=== PATIENT | female | born 1975 | race Caucasian/White ===

== ENCOUNTER → 2016-09-29 | Outpatient (REF) | payer OTHER ==
[~2016-09-29] MED LIST: ATIV0.5T3 PO; NO HOME MEDS; TRAZ50TA2 PO; ZOLO100T PO
[2016-09-29 16:40] LABS: MEAN CORPUSCULAR HEMOGLOBIN 27.6 pg (27.0-33.0); MEAN CORPUSCULAR HGB CONC 31.5 g/dl (32.0-36.5); MEAN CORPUSCULAR VOLUME 87.6 fl (80.0-96.0); RED CELL DISTRIBUTION WIDTH 13.7 % (11.5-14.5); WHITE BLOOD COUNT 7.4 K/mm3 (4.0-10.0)
[2016-09-29 17:18] LABS: ALBUMIN 3.7 GM/DL (3.2-5.2); ALKALINE PHOSPHATASE 83 U/L (45-117); ALT/SGPT 26 U/L (12-78); ANION GAP 7 MEQ/L (8-16); AST/SGOT 15 U/L (15-37); BILIRUBIN,TOTAL 0.3 MG/DL (0.2-1.0); BLOOD UREA NITROGEN 11 MG/DL (7-18); CALCIUM LEVEL 8.8 MG/DL (8.5-10.1); CARBON DIOXIDE LEVEL 27 MEQ/L (21-32); CHLORIDE LEVEL 107 MEQ/L (98-107); CREATININE FOR GFR 0.74 MG/DL (0.55-1.02); FREE T4 1.13 NG/DL (0.76-1.46); GLOMERULAR FILTRATION RATE > 60.0 (>60); GLUCOSE, FASTING 86 MG/DL (70-105); POTASSIUM SERUM 4.4 MEQ/L (3.5-5.1); SODIUM LEVEL 141 MEQ/L (136-145); TOTAL PROTEIN 7.4 GM/DL (6.4-8.2)
== END ==
LOC: M SFHCCLAY 09:56
PROVIDERS: ATTEND Family Medicine
DX: F32.1 Major depressive disorder, single episode, moderate (principal)

== ENCOUNTER → 2017-05-27 | Outpatient (REF) | payer OTHER ==
[2017-05-27 20:22] LABS: TOTAL PROTEIN 7.7 GM/DL (6.4-8.2)
[2017-05-31 13:44] LABS: ALBUMIN 4.09 GM/DL (3.29-5.55); ALBUMIN % 53.1 % (55.8-66.1); GAMMA GLOBULIN % 17.2 % (11.1-18.8)
== END ==
LOC: M SFHCCLAY 11:20
PROVIDERS: ATTEND Family Medicine
DX: R77.9 Abnormality of plasma protein, unspecified (principal)

== ENCOUNTER → 2017-07-25 | Outpatient (REF) | payer OTHER ==
[2017-07-27 10:49] LABS: HEPATITIS B SURFACE ANTIBODY NEGATIVE (POSITIVE)
== END ==
LOC: M SFHCCLAY 09:02
DX: Z02.1 Encounter for pre-employment examination (principal)

== ENCOUNTER → 2018-01-04 | Outpatient (CLI) | payer OTHER | LOC: M OUTALCOH 14:10 | DX: F11.20 Opioid dependence, uncomplicated (principal) ==

== ENCOUNTER 2018-01-10 13:53 | Outpatient (RCR) | payer OTHER | END 2018-02-07 | LOC: M OUTALCOH 01-27 09:00 | DX: F11.20 Opioid dependence, uncomplicated (principal); F10.20 Alcohol dependence, uncomplicated ==

== ENCOUNTER 2018-03-23 15:42 | Outpatient (RCR) | payer OTHER | END 2018-04-09 | LOC: M OUTALCOH 04-07 09:00 | DX: F11.20 Opioid dependence, uncomplicated (principal); F10.20 Alcohol dependence, uncomplicated ==

== ENCOUNTER 2018-04-21 15:39 | Outpatient (RCR) | payer OTHER | END 2018-05-10 | LOC: M OUTALCOH 04-27 09:00 | DX: F11.20 Opioid dependence, uncomplicated (principal); F10.20 Alcohol dependence, uncomplicated ==

== ENCOUNTER 2018-05-11 08:53 | Outpatient (RCR) | payer OTHER | END 2018-06-09 | LOC: M OUTALCOH 08:53 | DX: F11.20 Opioid dependence, uncomplicated (principal); F10.20 Alcohol dependence, uncomplicated ==

== ENCOUNTER 2018-07-06 10:36 | Outpatient (RCR) | payer OTHER | END 2018-07-10 | LOC: M OUTALCOH 10:36 | PROVIDERS: ATTEND Psychiatry & Neurology Psychiatry | DX: F10.20 Alcohol dependence, uncomplicated (principal); F11.20 Opioid dependence, uncomplicated ==

== ENCOUNTER 2018-08-09 09:30 | Outpatient (RCR) | payer OTHER | END 2018-08-10 | LOC: M OUTALCOH 09:30 | PROVIDERS: ATTEND Psychiatry & Neurology Psychiatry | DX: F11.20 Opioid dependence, uncomplicated (principal); F10.20 Alcohol dependence, uncomplicated ==

== ENCOUNTER 2018-08-31 14:30 | Outpatient (RCR) | payer OTHER | END 2018-09-07 | LOC: M OUTALCOH 14:30 | PROVIDERS: ATTEND Psychiatry & Neurology Psychiatry | DX: F11.20 Opioid dependence, uncomplicated (principal); F10.20 Alcohol dependence, uncomplicated ==

== ENCOUNTER 2018-10-11 05:36 | Day surgery (SDC) | payer OTHER ==
[~2018-10-11] VITALS: Ht 162.6 cm; Wt 110.6 kg
[~2018-10-11 05:36] MED LIST changes: +CITA40TA6 PO; +PRAZ1CAP PO
[2018-10-11] MEDS ORDERED: LR 1,000 ML IV ONE (06:00)
[2018-10-11 06:17] LABS: URINE PREG TEST NEGATIVE (NEGATIVE)
[2018-10-11] MEDS ORDERED: fentaNYL 100 MCG/2 ML INJECTION (J3010) As Ordered ONE (06:34)
[2018-10-11] MEDS ORDERED: MIDAZOLAM INJ 2 MG/2 ML VIAL (J2250) As Ordered ONE (06:34)
[2018-10-11] MEDS ORDERED: BUPIVACAINE HCL 0.25% 30 ML VIAL As Ordered ONE (06:34)
[2018-10-11] MEDS ORDERED: LIDOCAINE 2% INJ 100 MG/5 ML SDV (FOR ANES.) As Ordered ONE (06:55)
[2018-10-11] MEDS ORDERED: METOCLOPRAMIDE INJ 10MG/2ML VIAL (J2765) As Ordered ONE (06:55)
[2018-10-11] MEDS ORDERED: dexameTHASONE 4 MG/ML 1ML VIAL (J1100) As Ordered ONE (06:55)
[2018-10-11] MEDS ORDERED: PROPOFOL 200 MG/20 ML VIAL As Ordered ONE ×2 (06:55→08:11)
[2018-10-11] MEDS ORDERED: KETAMINE HCL 200 MG/20 ML VIAL As Ordered ONE (08:10)
[2018-10-11] MEDS ORDERED: SUCCINYLCHOLINE 100 MG/5 ML SYRINGE (J0330) As Ordered ONE (08:11)
[2018-10-11] MEDS ORDERED: fentaNYL 250 MCG/5 ML INJECTION (J3010) As Ordered ONE (08:12)
[2018-10-11] MEDS ORDERED: MIDAZOLAM INJ 2 MG/2 ML VIAL (J2250) IV ONE (09:45)
[2018-10-11] MEDS ORDERED: fentaNYL 100 MCG/2 ML INJECTION (J3010) IV ONE (10:00)
[2018-10-11] MEDS ORDERED: SUGAMMADEX SODIUM 500 MG/5 ML VIAL (BRIDION) As Ordered ONE (10:29)
[2018-10-11] MEDS ORDERED: HYDROMORPHONE HCL 0.5 MG/ 0.5 ML SYRINGE (J1170 PER 1) IV PRN (12:15)
[2018-10-11] MEDS ORDERED: fentaNYL 100 MCG/2 ML INJECTION (J3010) IV PRN (12:15)
[2018-10-11] MEDS ORDERED: traMADol 50 MG TAB PO PRN (12:15)
[2018-10-11] MEDS ORDERED: PROMETHAZINE INJ 25 MG/ML VIAL (J2550) IV PRN (12:15)
[2018-10-11] MEDS ORDERED: ONDANSETRON 4MG/2ML VIAL (J2405) IV PRN (12:15)
[2018-10-11] MEDS ORDERED: LR 1,000 ML IV SCH ×2 (12:15)
[2018-10-11] MEDS ORDERED: METOCLOPRAMIDE INJ 10MG/2ML VIAL (J2765) IV PRN (12:15)
[2018-10-11 13:50] VITALS: BP 137/97
--- NOTE | 2018-10-11 14:57 | REP ---
Left ankle: Eight views. History: Osteochondritis left ankle. Findings: A sequence of eight last image hold fluoroscopically obtained spot radiographs of the ankle document medial malleolar osteotomy and screw fixation. Electronically Signed by Leandro Nichols MD 10/11/2018 02:49 P
--- NOTE | 2018-10-19 09:35 | RO ---
DATE OF PROCEDURE: 10/11/2018 PREOPERATIVE DIAGNOSIS: Left talus osteochrondral lesion. POSTOPERATIVE DIAGNOSIS: Left talus osteochrondral lesion. PROCEDURES: 1. Left talus osteochrondral autograft transfer from the femur. 2. Medial malleolar osteotomy. SURGEON: Elva Montes MD ASSISTANTS: Bony Newton MD, and JHONATAN Chandra. ANESTHESIA: General endotracheal with popliteal and saphenous nerve blocks. ESTIMATED BLOOD LOSS: 75 mL. COMPLICATIONS: None. IMPLANTS: 4.0 cannulated screws times three. CONDITION: Stable to recovery. INDICATIONS: Pau Raman is a 42-year-old female with a large osteochrondral lesion in the medial aspect of the left talus. Patient has failed conservative measures and presents for elective surgery. Risks and benefits were explained in depth to the patient and included, but are not limited to, infection, damage to nerves and blood vessels, continued pain and stiffness, need for additional procedures. Informed consent was contained in the office. DESCRIPTION OF PROCEDURE: Patient was met in the preoperative holding area. Her left lower extremity was marked as the correct operative site. She was taken to the postanesthesia care unit (PACU), where she underwent nerve blocks by the anesthesia team. She was then taken to the operating room, where she was placed in the supine position on the operating room table. She underwent general anesthesia without any difficulty. A Cerrato was placed. This was removed at the end of the case. A bump was placed under the patient's operative extremity. A well-padded tourniquet was applied as well. Left lower extremity was prepped and draped in a normal sterile fashion after a chlorhexidine scrub had been performed. Antibiotics were given within 60 minutes prior to incision. An official time-out was held where the correct patient, operative site, and operative procedure were all verified. At this point, an incision was marked out over the medial malleolus about midway between the anterior and posterior aspects. The leg was exsanguinated, and tourniquet was inflated to 250 mmHg. Incision was made, and the medial malleolus was exposed. The medial aspect of the tibiotalar joint was identified. A guidewire was placed in location of the Chevron-type osteotomy for the medial malleolus. When I was satisfied with this on fluoroscopic films, a Chevron-type osteotomy was made using a #40 sagittal saw blade and micro sagittal saw. An osteotome was used to finish the cut through the cartilage. Following this, a Weinraub-type retractor was used to distract the osteotomy and expose the medial osteochrondral lesion in the talus. I had adequate exposure. The lesion was debrided with a rongeur and curettes back to a stable rim. It measured approximately 10 mm in diameter. Irrigation was performed of the joint. Once debridement had been performed to an adequate rim, attention was then turned to the knee. At this point, an incision was made over the lateral aspect of the knee by Dr. Newton. He did perform this part of the procedure. The retinaculum was incised, and the lateral aspect of the trochlea was identified. Using the [employer] OATS transfer system, a 10 mm plug was taken from the lateral aspect of the femur. The femur was then irrigated, and the retinaculum was closed using #0 Vicryl with the knee in 30 degrees of flexion. Skin there was closed with #3-0 Vicryl and rachel. After we had the autograft plug from the femur, it was shaped in a bullet-type manner. This was then transferred into the talus. The talus had previously been prepared with a 10 mm reamer. The plug fit nicely. There were no elevated areas. When we were happy with the placement of the plug, copious irrigation was performed. The medial malleolar osteotomy site was secured with two 4.0 mm screws and a third 4.0 mm screw transverse across the osteotomy. The first two pins had previously been predrilled. Reduction of the medial malleolar osteotomy site was confirmed on AP, lateral, and mortise views using the C-arm. I was satisfied with this reduction. Tourniquet was brought down, and hemostasis was maintained. Deep tissues were closed using #3-0 Vicryl, and skin was closed using #3-0 nylon. Patient was placed into a well-padded splint. She was extubated and taken to the recovery room in stable condition. PLAN: Patient will be nonweightbearing in the left lower extremity for 6 weeks. She will be on aspirin for deep venous thrombosis (DVT) prophylaxis. I will see her back in 2 weeks for suture removal.
== END 2018-10-11 13:55 | disposition home or self-care (01) ==
LOC: M SDC 05:36
PROVIDERS: ATTEND Orthopaedic Surgery
DX: M93.272 Osteochondritis dissecans, left ankle and joints of left foot (principal); F43.10 Post-traumatic stress disorder, unspecified; Z88.5 Allergy status to narcotic agent; Z79.899 Other long term (current) drug therapy
CPT/HCPCS: 28446; 64445; 64447; 73610; 84703; C1713; J0330; J0690; J1100; J2250; J2765; J3010

== ENCOUNTER → 2019-04-10 | Outpatient (REF) | LOC: M LAB 14:44 | PROVIDERS: ATTEND Nurse Practitioner Adult Health | DX: Z02.1 Encounter for pre-employment examination (principal) ==

== ENCOUNTER → 2019-04-11 | Outpatient (REF) | payer OTHER ==
[2019-04-11 18:46] LABS: ALBUMIN 3.7 GM/DL (3.2-5.2); ALT/SGPT 24 U/L (12-78); BILIRUBIN,TOTAL 0.5 MG/DL (0.2-1.0); BLOOD UREA NITROGEN 12 MG/DL (7-18); CALCIUM LEVEL 9.2 MG/DL (8.5-10.1); CARBON DIOXIDE LEVEL 28 MEQ/L (21-32); CHLORIDE LEVEL 106 MEQ/L (98-107); CREATININE FOR GFR 0.83 MG/DL (0.55-1.30); GLOMERULAR FILTRATION RATE > 60.0 (>58); GLUCOSE, FASTING 78 MG/DL (70-100); POTASSIUM SERUM 4.4 MEQ/L (3.5-5.1); SODIUM LEVEL 139 MEQ/L (136-145); TOTAL PROTEIN 7.7 GM/DL (6.4-8.2)
[2019-04-11 19:31] LABS: APPEARANCE, URINE CLOUDY (CLEAR); BACTERIA, URINE AUTO NEGATIVE (NEGATIVE); BILIRUBIN, URINE AUTO NEGATIVE (NEGATIVE); BLOOD, URINE BLOOD 3+ (NEGATIVE); COLOR, URINE YELLOW (YELLOW); GLUCOSE, URINE (UA) AUTO NEGATIVE (NEGATIVE); KETONE, URINE AUTO NEGATIVE (NEGATIVE); LEUKOCYTE ESTERASE, URINE AUTO 1+ (NEGATIVE); MUCUS, URINE SMALL (NEGATIVE); NITRITE, URINE AUTO NEGATIVE (NEGATIVE); PROTEIN, URINE AUTO 1+ mg/dL (NEGATIVE); RBC, URINE AUTO TNTC /HPF (0-3); SPECIFIC GRAVITY URINE AUTO 1.012 (1.002-1.035); SQUAMOUS EPITHELIAL CELL UR AU 1 /HPF (0-6); UROBILINOGEN, URINE AUTO 0.2 mg/dL (0.0-2.0); WBC, URINE AUTO 12 /HPF (0-3)
== END ==
LOC: M SFHCCLAY 09:33
PROVIDERS: ATTEND Family Medicine
DX: I10 Essential (primary) hypertension (principal)

== ENCOUNTER → 2019-04-11 | Outpatient (CLI) | payer OTHER ==
--- NOTE | 2019-04-11 17:13 | REP ---
HISTORY: Hypertension. COMPARISON: 05/17/2009. FINDINGS: The superior mediastinal structures are midline. The cardiac silhouette is unremarkable in size, shape and position. The diaphragmatic surfaces of the lungs are regular and the costophrenic angles are clear. The pulmonary olson are clear. The imaged osseous structures are intact. IMPRESSION: There is no acute cardiopulmonary disease. No change from the prior exam. Electronically Signed by Skyler Gilbert DO 04/12/2019 02:33 P
== END ==
LOC: M CLY 15:40
PROVIDERS: ATTEND Family Medicine
DX: I10 Essential (primary) hypertension (principal)

== ENCOUNTER → 2019-12-25 | Outpatient (REF) | payer OTHER ==
[2019-12-25 17:25] LABS: BLOOD UREA NITROGEN 17 MG/DL (7-18); CARBON DIOXIDE LEVEL 30 MEQ/L (21-32); CHLORIDE LEVEL 104 MEQ/L (98-107); CREATININE FOR GFR 0.83 MG/DL (0.55-1.30); GLOMERULAR FILTRATION RATE > 60.0 (>58); GLUCOSE, FASTING 80 MG/DL (70-100); POTASSIUM SERUM 3.6 MEQ/L (3.5-5.1); SODIUM LEVEL 141 MEQ/L (136-145)
[2019-12-25 17:37] LABS: APPEARANCE, URINE CLOUDY (CLEAR); BACTERIA, URINE AUTO NEGATIVE (NEGATIVE); BILIRUBIN, URINE AUTO NEGATIVE (NEGATIVE); BLOOD, URINE BLOOD NEGATIVE (NEGATIVE); COLOR, URINE YELLOW (YELLOW); GLUCOSE, URINE (UA) AUTO NEGATIVE (NEGATIVE); KETONE, URINE AUTO NEGATIVE (NEGATIVE); LEUKOCYTE ESTERASE, URINE AUTO NEGATIVE (NEGATIVE); MUCUS, URINE SMALL (NEGATIVE); NITRITE, URINE AUTO NEGATIVE (NEGATIVE); PROTEIN, URINE AUTO NEGATIVE (NEGATIVE); RBC, URINE AUTO 2 /HPF (0-3); SPECIFIC GRAVITY URINE AUTO 1.025 (1.002-1.035); SQUAMOUS EPITHELIAL CELL UR AU 21 /HPF (0-6); WBC, URINE AUTO 3 /HPF (0-3)
== END ==
LOC: M SFHCCLAY 07:44
PROVIDERS: ATTEND Family Medicine
DX: I10 Essential (primary) hypertension (principal)

== ENCOUNTER → 2020-03-27 | Outpatient (REF) | payer OTHER ==
[2020-03-27 17:49] LABS: FREE T4 1.23 NG/DL (0.76-1.46); THYROID STIMULATING HORMONE 1.63 uIU/ML (0.358-3.740)
== END ==
LOC: M LABDRAWC 16:55
PROVIDERS: ATTEND Family Medicine
DX: F32.9 Major depressive disorder, single episode, unspecified (principal)

== ENCOUNTER → 2021-08-19 | Outpatient (REF) | payer OTHER ==
[2021-08-19 18:00] LABS: FREE T4 0.94 NG/DL (0.76-1.46); THYROID STIMULATING HORMONE 3.78 uIU/ML (0.358-3.740)
== END ==
LOC: M SFHCCLAY 10:34
PROVIDERS: ATTEND Family Medicine
DX: R68.89 Other general symptoms and signs (principal)

== ENCOUNTER → 2021-09-08 | Outpatient (REF) | payer OTHER ==
[2021-09-08 17:49] LABS: FREE T4 1.19 NG/DL (0.76-1.46); THYROID STIMULATING HORMONE 3.04 uIU/ML (0.358-3.740)
== END ==
LOC: M SFHCCLAY 09:24
PROVIDERS: ATTEND Family Medicine
DX: R79.89 Other specified abnormal findings of blood chemistry (principal)

== ENCOUNTER → 2022-02-26 | Outpatient (REF) | payer OTHER | LOC: M SFHCCLAY 14:01 | PROVIDERS: ATTEND Family Medicine | DX: J06.9 Acute upper respiratory infection, unspecified (principal) ==

== ENCOUNTER → 2022-05-13 | Outpatient (REF) | LOC: M LAB 09:57 | PROVIDERS: ATTEND Nurse Practitioner Adult Health | DX: Z00.00 Encounter for general adult medical examination without abnormal findings (principal) ==

== ENCOUNTER → 2022-07-21 | Outpatient (REF) | LOC: M LABSMTC 09:27 | PROVIDERS: ATTEND Family Medicine | DX: Z11.52 Encounter for screening for COVID-19 (principal) ==

== ENCOUNTER → 2022-10-26 | Outpatient (REF) | payer OTHER ==
[2022-10-26 18:02] LABS: BLOOD UREA NITROGEN 13 MG/DL (9-23); CALCIUM LEVEL 9.4 MG/DL (8.5-10.1); CARBON DIOXIDE LEVEL 26 MMOL/L (20-31); CHLORIDE LEVEL 104 MMOL/L (98-107); GLOMERULAR FILTRATION RATE > 60.0 (>58); GLUCOSE, FASTING 83 MG/DL (60-100); POTASSIUM SERUM 4.4 MMOL/L (3.5-5.1); SODIUM LEVEL 138 MMOL/L (136-145)
== END ==
LOC: M SFHCCLAY 11:55
PROVIDERS: ATTEND Family Medicine
DX: I10 Essential (primary) hypertension (principal)

== ENCOUNTER → 2022-12-13 | Outpatient (CLI) | payer OTHER | LOC: M RAD 06:08 | PROVIDERS: ATTEND Family Medicine | DX: I10 Essential (primary) hypertension (principal) ==

== ENCOUNTER → 2023-06-29 | Outpatient (REF) | payer OTHER ==
[2023-06-29 12:46] LABS: HEMOGLOBIN A1c 4.9 % (4.0-6.0)
[2023-06-29 13:03] LABS: ALBUMIN 3.6 G/DL (3.2-5.2); ALKALINE PHOSPHATASE 84 U/L (46-116); ALT/SGPT 16 U/L (7.0-40); AST/SGOT 23 U/L (<34); BILIRUBIN,TOTAL 0.5 MG/DL (0.3-1.2); BLOOD UREA NITROGEN 19 MG/DL (9-23); CALCIUM LEVEL 9.5 MG/DL (8.5-10.1); CARBON DIOXIDE LEVEL 20 MMOL/L (20-31); CHLORIDE LEVEL 111 MMOL/L (98-107); CHOLESTEROL LEVEL 166 MG/DL (<200); CHOLESTEROL RISK RATIO 3.36 (<5); CREATININE FOR GFR 0.71 MG/DL (0.55-1.30); GLOMERULAR FILTRATION RATE > 60.0 (>58); GLUCOSE, FASTING 82 MG/DL (60-100); HDL CHOLESTEROL 49.4 MG/DL (>40); LDL CHOLESTEROL 98.2 MG/DL (<100); NON-HDL-C 116.6 MG/DL; POTASSIUM SERUM 4.4 MMOL/L (3.5-5.1); SODIUM LEVEL 140 MMOL/L (136-145); TOTAL PROTEIN 7.2 G/DL (5.7-8.2); TRIGLYCERIDES LEVEL 92 MG/DL (<150)
== END ==
LOC: M SFHCCLAY 07:30
PROVIDERS: ATTEND Family Medicine
DX: I10 Essential (primary) hypertension (principal)

== ENCOUNTER → 2024-08-21 | Outpatient (REF) | payer OTHER ==
[2024-08-21 12:01] LABS: THYROID STIMULATING HORMONE 2.203 uIU/ML (0.55-4.78)
[2024-08-21 12:04] LABS: ALBUMIN 3.5 G/DL (3.2-5.2); ALKALINE PHOSPHATASE 87 U/L (35-104); ALT/SGPT 12 U/L (7.0-40); AST/SGOT 14 U/L (<34); BILIRUBIN,TOTAL 0.5 MG/DL (0.3-1.2); BLOOD UREA NITROGEN 14 MG/DL (9-23); CARBON DIOXIDE LEVEL 25 MMOL/L (20-31); CHLORIDE LEVEL 108 MMOL/L (98-107); CHOLESTEROL LEVEL 169 MG/DL (<200); CREATININE FOR GFR 0.69 MG/DL (0.55-1.30); GLOMERULAR FILTRATION RATE > 60.0 (>58); GLUCOSE, FASTING 74 MG/DL (60-100); HDL CHOLESTEROL 52.8 MG/DL (>40); LDL CHOLESTEROL 99.2 MG/DL (<100); NON-HDL-C 116.2 MG/DL; POTASSIUM SERUM 4.2 MMOL/L (3.5-5.1); SODIUM LEVEL 138 MMOL/L (136-145); TOTAL PROTEIN 7.2 G/DL (5.7-8.2); TRIGLYCERIDES LEVEL 85 MG/DL (<150)
== END ==
LOC: M SFHCCLAY 06:59
PROVIDERS: ATTEND Nurse Practitioner Family
DX: I10 Essential (primary) hypertension (principal); F32.9 Major depressive disorder, single episode, unspecified

== ENCOUNTER → 2025-01-15 | Outpatient (REF) | payer OTHER | LOC: M SFHCCLAY 10:02 | PROVIDERS: ATTEND Nurse Practitioner Family | DX: Z53.9 Procedure and treatment not carried out, unspecified reason (principal) ==

== ENCOUNTER 2025-02-05 09:27 | Outpatient (RCR) | payer OTHER | END 2025-02-07 | LOC: M ST 09:27 | PROVIDERS: ATTEND Nurse Practitioner Family | DX: R47.1 Dysarthria and anarthria (principal) ==

== ENCOUNTER 2025-03-07 10:00 | Outpatient (RCR) | payer OTHER | END 2025-03-10 | LOC: M ST 10:00 | PROVIDERS: ATTEND Nurse Practitioner Family | DX: R47.1 Dysarthria and anarthria (principal) ==

== ENCOUNTER 2025-04-02 09:48 | Outpatient (RCR) | payer OTHER | END 2025-04-09 | LOC: M ST 09:48 | PROVIDERS: ATTEND Nurse Practitioner Family | DX: R47.1 Dysarthria and anarthria (principal) ==

== ENCOUNTER → 2025-04-10 | Outpatient (CLI) | payer OTHER | LOC: M CARPUL 09:23 | PROVIDERS: ATTEND Nurse Practitioner Family | DX: I10 Essential (primary) hypertension (principal) ==

== ENCOUNTER 2025-05-01 09:52 | Outpatient (RCR) | payer OTHER | END 2025-05-10 | LOC: M ST 09:52 | PROVIDERS: ATTEND Nurse Practitioner Family | DX: F98.5 Adult onset fluency disorder (principal) ==